=== PATIENT | female | born 1950 ===

== ENCOUNTER → 2018-03-31 21:20 | Outpatient (REF) | payer MEDICARE, OTHER, SELFPAY ==
[2018-03-31 22:26] LABS: Hematocrit 43.9 % (36-46); Hemoglobin 14.6 g/dL (12.0-16.0); Mean Corpuscular HGB Conc 33.2 % (30-36); Mean Corpuscular Hemoglobin 30.9 PG (26-34); Mean Corpuscular Volume 93.2 fL (80-100); Platelet Count 273 X10^3/uL (150-400); Red Blood Cell Count 4.71 X10^6/uL (4.0-5.2); Red Cell Distribution Width 13.2 % (11.6-14.8); White Blood Cell Count 7.2 X10^3/uL (4.5-11.0)
[2018-03-31 22:33] LABS: Add Manual Diff / Slide Review YES
[2018-03-31 22:45] LABS: Hemoglobin A1C% w Est Avg Glu 5.8 % (4.0-6.0)
[2018-03-31 23:44] LABS: Alanine Aminotransferase 35 IU/L (9-52); Albumin 4.4 g/dL (3.5-5.0); Albumin Globulin Ratio 1.6 (1.0-2.8); Alkaline Phosphatase 65 U/L (38-126); Aspartate Aminotransferase 25 IU/L (14-36); BUN Creatinine Ratio 26.3 (6-22); Bilirubin Total 1.1 mg/dL (0.2-1.3); Blood Urea Nitrogen 21 mg/dL (7-17); Carbon Dioxide 28 mmol/L (22-32); Chloride 103 mmol/L (98-107); Cholesterol 184 mg/dL (140-199); Estimated Glomerular Filt Rate > 60.0 mL/min (>60); Globulin 2.8 g/dL (1.7-4.1); Glucose 98 mg/dL (80-110); HDL Cholesterol 56 mg/dL (40-60); HEMOLYSIS < 15 (0-50); LDL Cholesterol Calculated 105 mg/dL (<100); Lipase 91 U/L (23-300); Potassium 5.1 mmol/L (3.4-5.1); Sodium 144 mmol/L (137-145); Total Protein 7.2 g/dL (6.3-8.2); Triglycerides 115 mg/dL (35-150)
[2018-03-31 23:46] LABS: C-Reactive Protein Quant < 0.5 mg/dL (<1.0)
[2018-04-01 04:50] LABS: RBC Morphology Normal Morphology
[2018-04-02 15:08] LABS: Estradiol 24 pg/mL
[2018-04-02 15:09] LABS: Progesterone 2.1 ng/mL
[2018-04-05 10:51] LABS: Estrogen 146.4 pg/mL
[2018-04-05 16:07] LABS: Testosterone Free 28.6 pg/mL (0.1-6.4); Testosterone Total 208 ng/dL (2-45)
== END ==
LOC: LAB 21:20
PROVIDERS: Visit Provider Family Medicine
DX: K92.0 Hematemesis (principal); Z13.89 Encounter for screening for other disorder; E78.5 Hyperlipidemia, unspecified; I10 Essential (primary) hypertension; Z79.890 Hormone replacement therapy
CPT/HCPCS: 80053; 80061; 82670; 82672; 83036; 83690; 84144; 84402; 84403; 85025; 86140

== ENCOUNTER → 2018-05-29 21:44 | Outpatient (REF) | payer MEDICARE, OTHER, SELFPAY ==
[2018-05-30 01:50] LABS: Lipase 94 U/L (23-300)
== END ==
LOC: LAB 21:44
PROVIDERS: Visit Provider Family Medicine
DX: K29.00 Acute gastritis without bleeding (principal); E78.5 Hyperlipidemia, unspecified
CPT/HCPCS: 36415; 83690